=== PATIENT | female | born 1985 | race Caucasian/White ===

== ENCOUNTER 2022-05-19 21:21 | Emergency (ER) | payer MEDICAID ==
[~2022-05-19] VITALS: Ht 162.6 cm; Wt 49.9 kg
--- NOTE | 2022-05-19 22:51 | NUR ---
Dr Almanza into eval patient.
[2022-05-19] MEDS ORDERED: OXYCODONE/APAP 5-325 MG TABLET PO ONE (23:00)
[2022-05-19 23:13] LABS: HEMATOCRIT 38.2 % (31.2-41.9); MEAN CORPUSCULAR HEMOGLOBIN 30.2 uug (24.7-32.8); MEAN CORPUSCULAR VOLUME 89.1 fL (75.5-95.3); PLATELET COUNT (AUTO) 293 K/uL (179-408)
[2022-05-19] MEDS ORDERED: OXYCODONE/APAP 5-325 MG TABLET ONE (23:20)
[2022-05-19] MEDS ORDERED: OXYC-128 PO (23:33)
[2022-05-19 23:34] LABS: *MONOTEST POSITIVE (NEGATIVE)
[2022-05-19 23:40] VITALS: BP 128/75
--- NOTE | 2022-05-19 23:40 | NUR ---
Patient discharged to home in stable condition with taking patient home. Written and verbal after care instructions given. Patient verbalizes understanding of instructions. Stressed follow up or return to ER for worsening s/s.
== END 2022-05-19 23:40 | disposition home or self-care (01) ==
LOC: ER 21:31
DX: J02.8 Acute pharyngitis due to other specified organisms (principal); B97.89 Other viral agents as the cause of diseases classified elsewhere
CPT/HCPCS: 36415; 85025; 86308; 86403; 87070; A4663